=== PATIENT | female | born 1990 | race American Indian/Alaskan Native ===

== ENCOUNTER 2017-04-29 21:44 | Emergency (ER) | payer OTHER ==
[2017-04-29 22:17] VITALS: RESP 18; O2SAT 99
[2017-04-29 23:38] LABS: BASO # 0.02 K/mm3 (0.0-2.0); BASO % 0.2 % (0.0-3.0); EOS # 0.1 (0.0-0.7); EOS % 0.5 % (1.5-5.0); GRAN # 7.48 (1.4-6.5); GRAN % 60.8 % (50.0-68.0); HEMATOCRIT 35.3 % (36.0-48.0); LYMPH % 32.2 % (22.0-35.0); MEAN CELL VOLUME 91.7 fl (80.0-105.0); MEAN CORPUSCULAR HEMOGLOBIN 29.9 pg (25.0-35.0); MEAN CORPUSCULAR HGB CONC 32.6 g/dl (31.0-37.0); MEAN PLATELET VOLUME 10.1 fl (7.0-11.0); MONO # 0.8 (0.1-0.6); MONO % 6.3 % (1.0-6.0); RED CELL DISTRIBUTION WIDTH 13.7 % (11.5-14.5); WHITE BLOOD COUNT 12.3 10^3/ul (4.5-11.0)
[2017-04-29 23:42] LABS: PH,URINE 6.5 (4.7-8.0); URINE BILIRUBIN NEGATIVE (NEGATIVE); URINE BLOOD NEGATIVE (NEGATIVE); URINE GLUCOSE (UA) NEGATIVE (NEGATIVE); URINE KETONE NEGATIVE (NEGATIVE); URINE LEUKOCYTE ESTERASE NEGATIVE Leu/uL (NEGATIVE); URINE PROTEIN NEGATIVE mg/dL (<30 mg/dL); URINE UROBILINOGEN 0.2 E.U./dL (<1 E.U./dL)
[2017-04-29 23:45] LABS: URINE APPEARANCE CLEAR (CLEAR); URINE COLOR YELLOW (YELLOW)
[2017-04-29 23:49] LABS: INR 1.09 (0.93-1.08); PARTIAL THROMBOPLASTIN TIME 26.1 Seconds (23.7-30.8)
[2017-04-29 23:55] LABS: ALB/GLOB RATIO 1.3 (1.1-1.8); ALKALINE PHOSPHATASE 70 U/L (38-126); ALT/SGPT 106 U/L (7-56); AST/SGOT 61 U/L (14-36); BILIRUBIN,TOTAL 0.4 mg/dL (0.2-1.3); BLOOD UREA NITROGEN 15 mg/dL (7-21); CARBON DIOXIDE 28 mmol/L (21-33); CHLORIDE 106 mmol/L (98-107); GFR AFRICAN-AMERICAN > 60; GLUCOSE,RANDOM 105 mg/dL (70-110); POTASSIUM 3.5 mmol/L (3.6-5.0); SODIUM 143 mmol/L (132-148); TOTAL PROTEIN 7.2 g/dL (5.8-8.3)
--- NOTE | 2017-04-30 00:32 | ED PDOC ---
Arrival/HPI - General Chief Complaint: Allergic Reaction Time Seen by Provider: 04/29/17 22:19 Historian: Patient - History of Present Illness Narrative History of Present Illness (Text): 04/30/17 00:32 26yr old female with rash to lower extremities after getting flu shot on 04/19. pt states she was seen at [facility] for rash and given benadryl and prednisone; pt states she completed treatment and rash hasnt resolved. pt denies cp or sob. no vomiting/diarrhea. no urinary symptoms. no dizziness or weakness. pt c/o slight pain to the lower legs. denies fever/chills. no urinary symptoms. pt states rash is only on lower legs bilaterally. c/o slight pruritis. Past Medical History - Provider Review Nursing Documentation Reviewed: Yes - Travel History Have you recently traveled outside [place] w/in the past 3 mons?: No - Infectious Disease Hx of Infectious Diseases: None - Tetanus Immunization Tetanus Immunization: Unknown - Psychiatric Hx Substance Use: No - Surgical History Hx Section: Yes (x 2: 2012 & 2015) - Anesthesia Hx Anesthesia: Yes Hx Anesthesia Reactions: No Hx Malignant Hyperthermia: No Family/Social History - Physician Review Nursing Documentation Reviewed: Yes Family/Social History: Unknown Family HX Smoking Status: Never Smoked Hx Alcohol Use: No Hx Substance Use: No Allergies/Home Meds Allergies/Adverse Reactions: Allergies No Known Allergies Allergy (Verified 04/29/17 22:08) Home Medications: Home Meds Medication Instructions Recorded Confirmed MedroxyPROGESTERone [Depo-Provera] 150 mg IM 04/29/17 Review of Systems - Review of Systems Constitutional: absent: Fatigue, Fevers Respiratory: absent: SOB, Cough Cardiovascular: absent: Chest Pain, Palpitations Gastrointestinal: absent: Abdominal Pain, Constipation, Diarrhea, Nausea, Vomiting Genitourinary Female: absent: Dysuria, Frequency, Hematuria Musculoskeletal: absent: Arthralgias, Back Pain, Neck Pain Skin: Rash, Pruritis Neurological: absent: Headache, Dizziness Psychiatric: absent: Anxiety, Depression Physical Exam Vital Signs Reviewed: Yes Vital Signs Temp Pulse Resp BP Pulse Ox 04/29/17 22:14 97.9 F 88 18 118/63 99 Temperature: Afebrile Blood Pressure: Normal Pulse: Regular Respiratory Rate: Normal Appearance: Positive for: Well-Appearing, Non-Toxic, Comfortable Pain Distress: None Mental Status: Positive for: Alert and Oriented X 3 - Systems Exam Head: Present: Atraumatic Mouth: Present: Moist Mucous Membranes Pharnyx: Present: Normal Respiratory/Chest: Present: Clear to Auscultation, Good Air Exchange. No: Respiratory Distress, Accessory Muscle Use Cardiovascular: Present: Regular Rate and Rhythm Upper Extremity: Present: Normal Inspection Lower Extremity: Present: Normal ROM, Neurovascularly Intact, Capillary Refill < 2 s. No: Temperature Abnormalties Neurological: Present: GCS=15, Speech Normal Skin: Present: Warm, Dry, Rashes (multiple non blanching erythematous papules noted to the lower legs bilaterally and one large plaque noted to the left lateral lower leg. ), Normal Color Psychiatric: Present: Alert, Oriented x 3 Medical Decision Making ED Course and Treatment: 04/30/17 01:12 26yr old female with rash to bilateral lower legs developed after flu shot on pt completed prednisone and benadryl course without improvement. pt seen and evaluated by dr. pérez. rash is non blanching. appears to be purpura. will check labs. cbc; wbc; 13.2 platelets wnl cmp; elevated ast/alt inr; 1.09 ua; wnl pepcid given IV> discussed all results with patient; pt with possible vasculitis s/p flu vaccine. pt was advised to f/u with pmd and customer manager IRENE. advised immediate return if symptoms worsen,persist or if new symptoms develop. stressed important of close f/u. Patient verbalizes understanding of discharge instructions and need for immediate followup. impression: vasculitis continue benadryl every 6 hours as needed for itch take pepcid daily follow up with the customer manager within the next 2 days. follow up with the primary care physician within the next 2 days. return immediately if symptoms worsen, persist or if new symptoms develop. - Lab Interpretations Lab Results: 04/29/17 23:26 04/29/17 23:26 Lab Results 04/29/17 23:26: WBC 12.3 H, RBC 3.85, Hgb 11.5 L, Hct 35.3 L, MCV 91.7, MCH 29.9 , MCHC 32.6, RDW 13.7, Plt Count 237, MPV 10.1, Gran % 60.8, Lymph % (Auto) 32.2 , [place] % (Auto) 6.3 H, Eos % (Auto) 0.5 L, Baso % (Auto) 0.2, Gran # 7.48 H, Lymph # 4.0 H, [place] # 0.8 H, Eos # 0.1, Baso # 0.02 04/29/17 23:26: Sodium 143, Potassium 3.5 L, Chloride 106, Carbon Dioxide 28, Anion Gap 13, BUN 15, Creatinine 0.8, Est GFR ( Amer) > 60, Est GFR (Non- Af Amer) > 60, Random Glucose 105, Calcium 9.0, Total Bilirubin 0.4, AST 61 H, ALT 106 H, Alkaline Phosphatase 70, Total Protein 7.2, Albumin 4.0, Globulin 3.2 , Albumin/Globulin Ratio 1.3 04/29/17 23:26: Urine Color Yellow, Urine Appearance Clear, Urine pH 6.5, Ur Specific [place] 1.020, Urine Protein Negative, Urine Glucose (UA) Negative, Urine Ketones Negative, Urine Blood Negative, Urine Nitrate Negative, Urine Bilirubin Negative, Urine Urobilinogen 0.2, Ur Leukocyte Esterase Negative 04/29/17 23:26: PT 11.8, INR 1.09 H, APTT 26.1 Disposition/Present on Arrival - Present on Arrival Any Indicators Present on Arrival: No History of DVT/PE: No History of Uncontrolled Diabetes: No Urinary Catheter: No History of Decub. Ulcer: No History Surgical Site Infection Following: Obstetrical/Gynecological Surgery - Disposition Have Diagnosis and Disposition been Completed?: Yes Diagnosis: Vasculitis, Rash Disposition: HOME/ ROUTINE Disposition Time: 00:46 Patient Plan: Discharge Condition: GOOD Discharge Instructions (ExitCare): Acute Rash (ED) Additional Instructions: continue benadryl every 6 hours as needed for itch take pepcid daily follow up with the customer manager within the next 2 days. follow up with the primary care physician within the next 2 days. return immediately if symptoms worsen, persist or if new symptoms develop. Prescriptions: DiphenhydrAMINE [Benadryl] 25 mg PO Q6H #20 cap Famotidine [Pepcid] 20 mg PO DAILY #30 tab Referrals: Chelita Fermin MD [Staff Provider] - Follow up with primary Francesca Schreiber MD [Staff Provider] - Follow up with primary Dallas Larsen MD [Staff Provider] - Follow up with primary Forms: [employer] (Kiswahili), WORK NOTE
[2017-04-30 00:52] VITALS: BP 131/78; PULSE 76; TEMP 98.2
== END 2017-04-30 01:00 | disposition home or self-care (01) ==
LOC: ED 21:44
DX: R21 Rash and other nonspecific skin eruption (principal); I77.6 Arteritis, unspecified

== ENCOUNTER 2017-05-02 16:42 | Emergency (ER) | payer OTHER ==
[2017-05-02 17:09] VITALS: RESP 18; TEMP 98.8; O2SAT 99
--- NOTE | 2017-05-02 17:53 | ED PDOC ---
Arrival/HPI - General Chief Complaint: Medical Clearance Time Seen by Provider: 05/02/17 16:47 - History of Present Illness Narrative History of Present Illness (Text): 26 year old female with a recent history of a purpuric rash on her bilateral lower extremity that developed after the administration of the flu shot on 2016, who now presents with 2 days of fever, headache, sore throat, and neck pain with movement. She reports absence of a cough, pain with swallowing, having a fever as high as 103.4 F, and generalized neck tenderness. Her symptoms have been unresponsive to Theraflu. She works in patient registration at a nearby hospital. She denies photophobia, unilateral weakness or numbness, chest pain, or shortness of breath. 05/02/17 17:51 (Eduardo Cardenas) Past Medical History - Provider Review Nursing Documentation Reviewed: Yes - Infectious Disease Hx of Infectious Diseases: None - Tetanus Immunization Tetanus Immunization: Unknown - Psychiatric Hx Substance Use: No - Surgical History Hx Section: Yes (x 2: 2012 & 2015) - Anesthesia Hx Anesthesia: Yes Hx Anesthesia Reactions: No Hx Malignant Hyperthermia: No Family/Social History - Physician Review Nursing Documentation Reviewed: Yes Family/Social History: Diabetes Smoking Status: Never Smoked Hx Alcohol Use: No Hx Substance Use: No Allergies/Home Meds Allergies/Adverse Reactions: Allergies No Known Allergies Allergy (Verified 05/02/17 17:09) Review of Systems - Review of Systems Constitutional: Fatigue, Fevers Eyes: absent: Photophobia, Eye Pain ENT: Sore Throat. absent: Rhinorrhea, Sinus Congestion Respiratory: absent: SOB, Cough, Sputum, Wheezing Cardiovascular: Palpitations. absent: Edema, Calf Pain Gastrointestinal: absent: Abdominal Pain, Stool Changes, Constipation, Diarrhea Genitourinary Female: absent: Dysuria, Frequency, Hematuria Musculoskeletal: Neck Pain Skin: Rash (purpura on bilateral lower extremities) Neurological: Headache. absent: Dizziness, Focal Weakness, Gait Changes Endocrine: absent: Diaphoresis, Polyuria Hemo/Lymphatic: Adenopathy Psychiatric: absent: Anxiety, Depression Physical Exam Temperature: Afebrile Blood Pressure: Normal Pulse: Regular Respiratory Rate: Normal Appearance: Positive for: Ill-Appearing, Uncomfortable Pain Distress: Mild Mental Status: Positive for: Alert and Oriented X 3 - Systems Exam Head: Present: Atraumatic, Normocephalic Pupils: Present: PERRL Extroacular Muscles: Present: EOMI Conjunctiva: Present: Normal Ears: Present: NORMAL TM Pharnyx: Present: ERYTHEMA, EXUDATE, Peritonsilar Swelling, Other (petechial rash on the roof of the mouth) Neck: Present: Lymphadenopathy Respiratory/Chest: Present: Clear to Auscultation, Good Air Exchange. No: Respiratory Distress, Accessory Muscle Use, Wheezes Cardiovascular: Present: Regular Rate and Rhythm, Normal S1, S2 Abdomen: Present: Normal Bowel Sounds. No: Tenderness, Distention, Peritoneal Signs Back: Present: Normal Inspection. No: CVA Tenderness, Midline Tenderness Upper Extremity: Present: Normal Inspection. No: Cyanosis, Edema Lower Extremity: Present: Other (non-palpable purpura without blanching) Neurological: Present: CN II-XII Intact, Speech Normal, Motor Func Grossly Intact Skin: Present: Warm, Dry, Normal Color Lymphatic: Present: Cervical Adenopathy Psychiatric: Present: Alert, Oriented x 3, Normal Insight, Normal Concentration Vital Signs Temp Pulse Resp BP Pulse Ox 05/02/17 17:07 98.8 F 97 H 18 127/87 99 Medical Decision Making ED Course and Treatment: Patient reports reduction in symptoms. Labs reviewed and discussed with patient. 05/02/17 19:37 (Eduardo Cardenas) - Lab Interpretations Lab Results: 05/02/17 18:08 05/02/17 18:08 Lab Results 05/02/17 18:08: Sodium 141, Potassium 4.0, Chloride 108 H, Carbon Dioxide 23, Anion Gap 14, BUN 15, Creatinine 0.7, Est GFR ( Amer) > 60, Est GFR (Non- Af Amer) > 60, Random Glucose 104, Calcium 9.1, Total Bilirubin 0.5, AST 31, ALT 68 H, Alkaline Phosphatase 87, Total Protein 7.7, Albumin 4.4, Globulin 3.3 , Albumin/Globulin Ratio 1.3 05/02/17 18:08: WBC 10.5, RBC 4.13, Hgb 12.3, Hct 37.5, MCV 90.8, MCH 29.8, MCHC 32.8, RDW 13.5, Plt Count 239, MPV 10.3, Gran % 66.0, Lymph % (Auto) 24.9, [place] % (Auto) 7.3 H, Eos % (Auto) 1.6, Baso % (Auto) 0.2, Gran # 6.91 H, Lymph # 2.6, [place] # 0.8 H, Eos # 0.2, Baso # 0.02, ESR 13 05/02/17 18:08: Grp A Beta Strep Ag Negative - Medication Orders Current Medication Orders: Discontinued Medications Acetaminophen (Tylenol 325mg Tab) 975 mg PO STAT STA Stop: 05/02/17 18:03 Last Admin: 05/02/17 18:42 Dose: 975 mg MAR Pain/Vitals Document 05/02/17 18:42 EQ (Rec: 05/02/17 18:42 EQ [place] [id number]) Pain Reassessment Is This A Pain ReAssessment? No Sleep Is patient sleeping during reassessment? No Presence of Pain Presence of Pain Yes Sodium Chloride (Sodium Chloride 0.9%) 500 mls @ 999 mls/hr IV .Q31M STA Stop: 05/02/17 18:32 Last Admin: 05/02/17 18:42 Dose: 999 mls/hr eMAR Start Stop Document 05/02/17 18:42 EQ (Rec: 05/02/17 18:42 EQ [place] [id number]) Intravenous Solution Start Date 05/02/17 Start Time 18:42 Ketorolac Tromethamine (Toradol) 30 mg IVP STAT STA Stop: 05/02/17 17:51 Last Admin: 05/02/17 18:36 Dose: 30 mg MAR Pain Assessment Document 05/02/17 18:36 EQ (Rec: 05/02/17 18:41 EQ [place] [id number]) Pain Reassessment Is this a pain reassessment? No Sleep Is patient sleeping during reassessment? No Presence of Pain Presence of Pain Yes IVP Administration Document 05/02/17 18:36 EQ (Rec: 05/02/17 18:41 EQ [place] [id number]) Charges for Administration # of IVP Administrations 1 Disposition/Present on Arrival - Present on Arrival Any Indicators Present on Arrival: No History of DVT/PE: No History of Uncontrolled Diabetes: No Urinary Catheter: No History of Decub. Ulcer: No History Surgical Site Infection Following: None - Disposition Have Diagnosis and Disposition been Completed?: Yes Disposition Time: 19:38 - Disposition Diagnosis: Viral pharyngitis Disposition: HOME/ ROUTINE Condition: FAIR Discharge Instructions (ExitCare): Pharyngitis (ED) Additional Instructions: 1) Please continue to stay well hydrated. 2) Please follow up with your primary medical doctor within the next 7 days. Forms: [facility] ([place]aguan), WORK NOTE
[2017-05-02] MEDS ORDERED: Sodium Chloride 0.9% 500 ML IV STA (18:02)
[2017-05-02 18:23] LABS: BASO # 0.02 K/mm3 (0.0-2.0); BASO % 0.2 % (0.0-3.0); EOS # 0.2 (0.0-0.7); EOS % 1.6 % (1.5-5.0); GRAN # 6.91 (1.4-6.5); HEMATOCRIT 37.5 % (36.0-48.0); LYMPH # 2.6 (1.2-3.4); LYMPH % 24.9 % (22.0-35.0); MEAN CELL VOLUME 90.8 fl (80.0-105.0); MEAN CORPUSCULAR HEMOGLOBIN 29.8 pg (25.0-35.0); MEAN CORPUSCULAR HGB CONC 32.8 g/dl (31.0-37.0); MEAN PLATELET VOLUME 10.3 fl (7.0-11.0); MONO # 0.8 (0.1-0.6); MONO % 7.3 % (1.0-6.0); RED CELL DISTRIBUTION WIDTH 13.5 % (11.5-14.5); WHITE BLOOD COUNT 10.5 10^3/ul (4.5-11.0)
[2017-05-02 18:30] LABS: ALB/GLOB RATIO 1.3 (1.1-1.8); ALKALINE PHOSPHATASE 87 U/L (38-126); ALT/SGPT 68 U/L (7-56); AST/SGOT 31 U/L (14-36); BILIRUBIN,TOTAL 0.5 mg/dL (0.2-1.3); BLOOD UREA NITROGEN 15 mg/dL (7-21); CALCIUM 9.1 mg/dL (8.4-10.5); CARBON DIOXIDE 23 mmol/L (21-33); CHLORIDE 108 mmol/L (98-107); GFR AFRICAN-AMERICAN > 60; GLUCOSE,RANDOM 104 mg/dL (70-110); SODIUM 141 mmol/L (132-148); TOTAL PROTEIN 7.7 g/dL (5.8-8.3)
[2017-05-02 20:32] VITALS: BP 125/72; PULSE 89
== END 2017-05-02 20:31 | disposition home or self-care (01) ==
LOC: ED 16:42
DX: J02.9 Acute pharyngitis, unspecified (principal)
CPT/HCPCS: 80053; 85025; 85651; 86663; 87070; 87430; 96374; 99282; J1885; J7040